=== PATIENT | female | born 1955 | race Two or more races ===

== ENCOUNTER 2022-01-08 10:21 | Emergency (ER) | payer MEDICARE ==
[~2022-01-08] VITALS: Ht 165.1 cm; Wt 77.1 kg
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
--- NOTE | 2022-01-08 10:45 | NUR ---
PT SEEN AND EXAMINED BY .
[2022-01-08] MEDS ORDERED: LORAZEPAM INJ 2 MG/ML VIAL ONE (10:48)
[2022-01-08] MEDS ORDERED: KETOROLAC TROMETHAMINE 15 MG/ML VIAL ONE (10:48)
[2022-01-08] MEDS ORDERED: LEVO25TA82 PO (10:51)
[2022-01-08] MEDS ORDERED: PREG-59 PO (10:51)
[2022-01-08] MEDS ORDERED: LIOT5TAB11 PO (10:51)
[2022-01-08] MEDS ORDERED: ALPR1TAB7 PO (10:51)
[2022-01-08] MEDS ORDERED: ACET1TAB23 PO (10:51)
[2022-01-08] MEDS ORDERED: TRAM100T34 PO (10:51)
[2022-01-08] MEDS ORDERED: GABA-532 PO (10:55)
[2022-01-08] MEDS ORDERED: ONDA4TAB11 SL (10:55)
[2022-01-08] MEDS ORDERED: AMLO-212 PO (10:55)
[2022-01-08 10:59] LABS: BASOPHILS # (AUTO) 0.1 K/uL (0.0-0.2); BASOPHILS % (AUTO) 0.9 % (0.0-2.0); EOSINOPHILS % (AUTO) 1.3 % (0.0-6.0); HEMATOCRIT 38 % (33-45); HEMOGLOBIN 12.7 g/dL (11.5-14.8); LYMPHOCYTES # (AUTO) 3.5 K/uL (0.8-4.8); LYMPHOCYTES % (AUTO) 31.4 % (20.0-44.0); MEAN CORPUSCULAR HGB CONC 33 g/dl (31.0-36.0); MEAN CORPUSCULAR VOLUME 106 fL (82-100); MONOCYTES # (AUTO) 0.8 K/uL (0.1-1.30); MONOCYTES % (AUTO) 7.5 % (2.0-12.0); NEUTROPHILS # (AUTO) 6.7 K/uL (1.8-8.9); NEUTROPHILS % (AUTO) 58.9 % (43.0-81.0); PLATELET COUNT (AUTO) 247 K/uL (150-450); RED BLOOD CELL COUNT(AUTO) 3.62 MIL/uL (4.0-5.2); WHITE BLOOD COUNT (AUTO) 11.3 K/uL (4.3-11.0)
[2022-01-08] MEDS: LORAZEPAM INJ 2 MG/ML VIAL IV ONE (10:59)
[2022-01-08] MEDS: IV NS 0.9% 1,000 ML IV ONE (10:59)
[2022-01-08] MEDS: KETOROLAC TROMETHAMINE INJ 30 MG/ML VIAL IV ONE (11:00)
--- NOTE | 2022-01-08 11:00 | NUR ---
IV LINE ESTABLISHED BLOOD DRAWN AND SENT TO LAB.
[2022-01-08 11:07] LABS: CALCIUM, SERUM 6.6 mg/dL (8.5-10.1); CREATININE 2.7 mg/dL (0.6-1.3); POTASSIUM 4.3 mmol/L (3.5-5.1)
[2022-01-08 11:27] LABS: LYMPHOCYTES % (MANUAL) 32 % (16-48); MONOCYTES % (MANUAL) 5 % (0-11.0); NEUTROPHILS % (MANUAL) 63 (42-76)
--- NOTE | 2022-01-08 12:36 | NUR ---
PT SIGNED AMA. DAUGHTER AND MD AT BEDSIDE. WILL GO HOME W DAUGHTER
[2022-01-08 12:37] VITALS: BP 137/69
== END 2022-01-08 12:39 | disposition left against medical advice (07) ==
LOC: ER 10:26
DX: N17.9 Acute kidney failure, unspecified (principal); E83.51 Hypocalcemia; M62.838 Other muscle spasm; I10 Essential (primary) hypertension; F41.9 Anxiety disorder, unspecified; Z79.899 Other long term (current) drug therapy
CPT/HCPCS: 36415; 80048; 85007; 85025; 96361; 96374; 96375; 99284; J1885; J2060

== ENCOUNTER 2023-02-15 14:45 | Emergency (ER) | payer MEDICARE ==
[~2023-02-15] VITALS: Ht 165.1 cm; Wt 74.8 kg
[~2023-02-15 14:45] MED LIST: ACET1TAB23 PO; ALPR1TAB7 PO; AMLO-212 PO; GABA-532 PO; LEVO25TA82 PO; LIOT5TAB11 PO; ONDA4TAB11 SL; PREG-59 PO; TRAM100T34 PO
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
[2023-02-15] MEDS ORDERED: HYDROCODONE/APAP 5/325MG TABLET PO ONE ×2 (16:30→18:00)
[2023-02-15] MEDS ORDERED: TDAP [DIPH/PERTUSSIS/TET] 0.5 ML VIAL IM ONE ×2 (16:30→16:43)
[2023-02-15] MEDS ORDERED: HYDROCODONE/APAP 5/325MG TABLET ONE ×2 (16:43→18:19)
[2023-02-15 17:08] VITALS: BP 129/88
[2023-02-15] MEDS ORDERED: HYDR-4303 PO (17:44)
[2023-02-15] MEDS ORDERED: BACITRACIN ZINC OINT PACKET 1 EA PACKET TP ONE (18:00)
--- NOTE | 2023-02-15 18:19 | NUR ---
CALLED [facility] AND SET UP S TRANSPORT ETA [phone]
--- NOTE | 2023-02-15 18:37 | NUR ---
report given to emt tx back home
== END 2023-02-15 18:38 | disposition home or self-care (01) ==
LOC: ER 14:47
DX: S51.812A Laceration without foreign body of left forearm, initial encounter (principal); S00.03XA Contusion of scalp, initial encounter; I10 Essential (primary) hypertension; F41.9 Anxiety disorder, unspecified; Z60.2 Problems related to living alone; Z79.899 Other long term (current) drug therapy; W01.0XXA Fall on same level from slipping, tripping and stumbling without subsequent striking against object, initial encounter; Y93.89 Activity, other specified; Y92.89 Other specified places as the place of occurrence of the external cause; Y99.8 Other external cause status
CPT/HCPCS: 70450-TC; 71045-TC; 72125-TC; 73030-TC; 73060-TC; 73080-TC; 73090-TC; 90715